=== PATIENT | male | born 1950 | race Caucasian/White ===

== ENCOUNTER 2022-04-13 10:33 | Day surgery (SDC) | payer MEDICARE, OTHER ==
[~2022-04-13 10:33] MED LIST: ACETAMINOPHEN TAB 500 MG TAB PO PRN; HEPARIN SODIUM,PORCINE/PF 5,000 UNIT/0.5 ML SYRINGE SQ PRN; Pre Op ABX Message 1 EACH MISC MISCELLANE ONE
[2022-04-13 11:08] VITALS: RESP 16
[2022-04-13] MEDS ORDERED: ONDANSETRON 4 MG/2 ML VIAL ONE (11:27)
[2022-04-13] MEDS ORDERED: LACTATED RINGERS 1,000 ML IV ONE (11:30)
[2022-04-13] MEDS ORDERED: DEXAMETHASONE SOD PHOSPHATE 4 MG/ML 1 ML VIAL IVP ONE (11:40)
--- NOTE | 2022-04-13 11:44 | P.GSHP ---
History of Present Illness H&P Date: 04/13/22 Chief Complaint: Colon cancer screening, sebaceous cyst 71-year-old male here today for colonoscopy and removal mid back sebaceous cyst. Cyst continues to drain foul-smelling fluid. Mild pain at times. Increasing in size. No bowel complaints. Past Medical History Past Medical History: Hyperlipidemia, Hypertension, Osteoarthritis (OA), Prostate Disorder Additional Past Medical History / Comment(s): hx. colon polyps History of Any Multi-Drug Resistant Organisms: None Reported Past Surgical History: Hernia Repair, Orthopedic Surgery Additional Past Surgical History / Comment(s): colonoscopies, left knee ACL replaced, right shoulder partial replacement, ale inguinal hernia repairs, umbilical hernia repair, hemorroidectomy Past Anesthesia/Blood Transfusion Reactions: No Reported Reaction Smoking Status: Former smoker - Past Family History Mother Family Medical History: No Reported History Medications and Allergies Home Medications Medication Instructions Recorded Confirmed Type Atorvastatin [Lipitor] 10 mg PO DAILY 04/07/22 04/13/22 History Finasteride [Proscar] 5 mg PO DAILY 04/07/22 04/13/22 History Losartan Potassium [Cozaar] 50 mg PO DAILY 04/07/22 04/13/22 History hydroCHLOROthiazide [Hydrodiuril] 12.5 mg PO DAILY 04/07/22 04/13/22 History Allergies Allergy/AdvReac Type Severity Reaction Status Date / Time No Known Allergies Allergy Verified 04/13/22 11:01 Surgical - Exam Vital Signs Temp Pulse Resp BP Pulse Ox 98 F 81 16 131/75 96 04/13/22 11:00 04/13/22 11:00 04/13/22 11:00 04/13/22 11:00 04/13/22 11:00 Physical exam: General: Well-developed, well-nourished HEENT: Normocephalic, sclerae nonicteric Abdomen: Nontender, nondistended Extremities: No edema, mid back with 2.5-3 cm sebaceous cyst Neuro: Alert and oriented Assessment and Plan (1) Colon cancer screening Narrative/Plan: Will proceed with colonoscopy at this time. Current Visit: Yes Status: Acute Code(s): Z12.11 - ENCOUNTER FOR SCREENING FOR MALIGNANT NEOPLASM OF COLON SNOMED Code(s): 802447859
[2022-04-13] MEDS ORDERED: ONDANSETRON 4 MG/2 ML VIAL IVP ONE (11:45)
[2022-04-13] MEDS ORDERED: NALOXONE 0.4 MG/ML 1 ML VIAL IV PRN ×2 (11:46→13:04)
--- NOTE | 2022-04-13 11:47 | P.GSHP ---
History of Present Illness H&P Date: 04/13/22 Chief Complaint: colon cancer screening 71-year-old male here for colonoscopy. Patient with positive cologuard. Attempts in May for colonoscopy were inconclusive because of a poor colonic prep. Otherwise doing well. Past Medical History Past Medical History: Hyperlipidemia, Hypertension, Osteoarthritis (OA), Prostate Disorder Additional Past Medical History / Comment(s): hx. colon polyps History of Any Multi-Drug Resistant Organisms: None Reported Past Surgical History: Hernia Repair, Orthopedic Surgery Additional Past Surgical History / Comment(s): colonoscopies, left knee ACL replaced, right shoulder partial replacement, ale inguinal hernia repairs, umbilical hernia repair, hemorroidectomy Past Anesthesia/Blood Transfusion Reactions: No Reported Reaction Smoking Status: Former smoker - Past Family History Mother Family Medical History: No Reported History Medications and Allergies Home Medications Medication Instructions Recorded Confirmed Type Atorvastatin [Lipitor] 10 mg PO DAILY 04/07/22 04/13/22 History Finasteride [Proscar] 5 mg PO DAILY 04/07/22 04/13/22 History Losartan Potassium [Cozaar] 50 mg PO DAILY 04/07/22 04/13/22 History hydroCHLOROthiazide [Hydrodiuril] 12.5 mg PO DAILY 04/07/22 04/13/22 History Allergies Allergy/AdvReac Type Severity Reaction Status Date / Time No Known Allergies Allergy Verified 04/13/22 11:01 Surgical - Exam Vital Signs Temp Pulse Resp BP Pulse Ox 98 F 81 16 131/75 96 04/13/22 11:00 04/13/22 11:00 04/13/22 11:00 04/13/22 11:00 04/13/22 11:00 Physical exam: General: Well-developed, well-nourished HEENT: Normocephalic, sclerae nonicteric Abdomen: Nontender, nondistended Extremities: No edema Neuro: Alert and oriented Assessment and Plan (1) Colon cancer screening Narrative/Plan: Will proceed with colonoscopy at this time. Current Visit: Yes Status: Acute Code(s): Z12.11 - ENCOUNTER FOR SCREENING FOR MALIGNANT NEOPLASM OF COLON SNOMED Code(s): 263344390
[2022-04-13] MEDS ORDERED: PHENYLEPHRINE-0.9% NACL SYG 1,000 MCG/10 ML SYRINGE ONE (11:50)
[2022-04-13] MEDS ORDERED: SUCCINYLCHOLINE CHLORIDE 200 MG/10 ML VIAL IV ONE (11:50)
[2022-04-13] MEDS ORDERED: ePHEDrine 50 MG/ML 1 ML VIAL ONE (11:50)
[2022-04-13] MEDS ORDERED: MIDAZOLAM 2 MG/2 ML VIAL ONE (11:50)
[2022-04-13] MEDS ORDERED: fentaNYL (PF) 50 MCG/ML 2 ML AMP ONE (11:50)
[2022-04-13] MEDS ORDERED: PROPOFOL 10 MG/ML 20 ML VIAL IV ONE (11:50)
[2022-04-13] MEDS ORDERED: BUPIVACAIN-EPI 0.25%-1:200,000 30 ML VIAL SQ ONE (12:20)
--- NOTE | 2022-04-13 13:08 | P.PCN ---
Date of Procedure: 04/13/22 Procedure(s) Performed: PREOPERATIVE DIAGNOSIS: mid back sebaceous cyst, screening POSTOPERATIVE DIAGNOSIS: mid back sebaceous cyst, multiple colon polyps PROCEDURE: excision sebaceous cyst mid back, intermediate closure, Colonoscopy with snare polypectomy ANESTHESIA: Gen. SURGEON: Braden Mendez M.D. SPECIMENS: cyst, polyps ENDOSCOPIC PROCEDURE: The patient was placed on the endoscopy table in the left decubitus position. the back was prepped and draped sterilely. An elliptical incision was made overlying the palpable sebaceous cyst. This was then excised using a combination of sharp dissection and cautery. Subcutaneous tissues closed using interrupted 3-0 Vicryl sutures. Skin closed using 4-0 Monocryl sutures. Skin glue then applied along with a sterile dressing.The Olympus colonoscope was inserted into the anus and passed under direct visualization to the base of the cecum. The appendiceal orifice was visualized. From that point the scope was slowly withdrawn inspecting all surfaces carefully. There were no neoplastic inflammatory or polypoid lesions throughout the cecum. In the ascending colon a small polyp was seen and removed using the snare with cautery technique. A similar polyp was seen and removed in a similar fashion and the transverse colon. In the sigmoid colon 2 polyps were seen and removed in a similar fashion. In the rectum a small polyp was also seen and removed using the snare with cautery technique. There was no visible diverticulosis. Digital rectal examination was normal. The patient was taken to the recovery room in stable condition per anesthesia guidelines. RECOMMENDATIONS: await biopsy results. Anticipate repeat colonoscopy 3-5 years.
[2022-04-13 13:18] VITALS: TEMP 96.9
[2022-04-13] MEDS: LACTATED RINGERS 1,000 ML IV SCH ×2 (13:26→13:35)
[2022-04-13 14:21] VITALS: BP 125/76; PULSE 67
== END 2022-04-13 14:30 | disposition home or self-care (01) ==
LOC: OR 10:33
PROVIDERS: ATTEND Surgery
DX: D12.3 Benign neoplasm of transverse colon (principal); D12.2 Benign neoplasm of ascending colon; L72.3 Sebaceous cyst; D12.5 Benign neoplasm of sigmoid colon; K62.1 Rectal polyp; I10 Essential (primary) hypertension; E78.5 Hyperlipidemia, unspecified; M19.90 Unspecified osteoarthritis, unspecified site; Z98.890 Other specified postprocedural states; Z87.891 Personal history of nicotine dependence; Z79.899 Other long term (current) drug therapy
CPT/HCPCS: 12031; 88304; 88305; 45385; J2250; J0330; J1100; J2405; J3010; J2370; J2704; J1644